=== PATIENT | male | born 1990 | race Caucasian/White ===

== ENCOUNTER 2017-12-18 03:08 | Emergency (ER) | payer SELFPAY ==
[2017-12-18 03:25] VITALS: BP 132/69; PULSE 58; TEMP 97.8; BMI 26.6
--- NOTE | 2017-12-18 05:50 | PDOC ---
History of Present Illness - General Chief Complaint: Foreign Body (FB) Stated Complaint: R EYE IRRITATION Time Seen by Provider: 12/18/17 05:41 Past History - Past Medical History Allergies/Adverse Reactions: Allergies Allergy/AdvReac Type Severity Reaction Status Date / Time No Known Allergies Allergy Verified 12/18/17 03:16 Home Medications: Ambulatory Orders Erythromycin 0.5% Eye Ointment [Erythromycin 0.5% Eye Ointment -] 1 applic OD TID #1 tube 12/18/17 COPD: No DVT: No - Suicide/Smoking/Psychosocial Hx Smoking History: Never smoked Have you smoked in the past 12 months: No Information on smoking cessation initiated: No Hx Alcohol Use: No Drug/Substance Use Hx: No Substance Use Type: None *Physical Exam - Vital Signs Last Vital Signs Temp Pulse Resp BP Pulse Ox 97.8 F 58 L 18 132/69 100 12/18/17 03:14 12/18/17 03:14 12/18/17 03:14 12/18/17 03:14 12/18/17 03:14 *DC/Admit/Observation/Transfer Diagnosis at time of Disposition: Corneal abrasion Qualifiers: Encounter type: initial encounter Laterality: right Qualified Code(s): S05.01XA - Injury of conjunctiva and corneal abrasion without foreign body, right eye, initial encounter - Discharge Dispostion Disposition: HOME Condition at time of disposition: Stable Admit: No - Referrals Referrals: Dave Curtis MD [Staff Physician] - Ila Browne MD [Staff Physician] - - Patient Instructions Printed Discharge Instructions: DI for Corneal Abrasion Additional Instructions: You have a corneal abrasion or scratch on your eye. Please use erythromycin ointment 3 times a day for the next week. Please follow up with ophthalmology tomorrow. You were provided two referrals. If you're unable to get an appointment please go to [facility] or [facility] for further evaluation. Return to the emergency department if you have visual changes, lightheadedness, headaches, or any changes in her symptoms. Usted tiene libertad abrasin corneal o rasguo en best kusum. Por favor, use la pomada de eritromicina 3 veces al da pallavi la prxima semana. Por favor haz un seguimiento con oftalmologa maana. Le proporcionaron dos referencias. Si no puede obtener libertad fernie, visite [facility] o [facility] para libertad evaluacin ms detallada. Regrese al departamento de emergencia si tiene cambios visuales, aturdimiento, cecy de erica o cualquier cambio en alan sntomas. - Post Discharge Activity
[2017-12-18] MEDS ORDERED: FLUORESCEIN NA 1 EA STRIP OD ONE (05:51)
[2017-12-18] MEDS ORDERED: TETRACAINE 0.5% OPHTH SOLN 2 ML BOTTLE OD ONE (05:51)
[2017-12-18] MEDS ORDERED: FLUORESCEIN NA 1 EA STRIP ONE ×2 (05:55→06:37)
[2017-12-18] MEDS ORDERED: TETRACAINE 0.5% OPHTH SOLN 2 ML BOTTLE ONE ×2 (05:55→06:37)
[2017-12-18] MEDS ORDERED: ERYTHROMYCIN 0.5% OPHTHALMIC OINTMENT 3.5 GM TUBE OD ONE (06:51)
[2017-12-18] MEDS ORDERED: ERYTHROMYCIN 0.5% OPHTHALMIC OINTMENT 3.5 GM TUBE ONE (06:55)
== END 2017-12-18 06:56 | disposition home or self-care (01) ==
LOC: JER 03:08
DX: S05.01XA Injury of conjunctiva and corneal abrasion without foreign body, right eye, initial encounter (principal); X58.XXXA Exposure to other specified factors, initial encounter; Y93.89 Activity, other specified; Y92.89 Other specified places as the place of occurrence of the external cause; Y99.8 Other external cause status
CPT/HCPCS: 99281-25